=== PATIENT | male | born 1980 | race Caucasian/White ===

== ENCOUNTER → 2021-06-23 | Outpatient (CLI) | payer OTHER ==
[2021-06-23 08:17] LABS: BASOPHILS % (AUTO) 1 % (0-10); EOSINOPHILS # (AUTO) 0.1 10^3/uL (0.0-0.3); EOSINOPHILS % (AUTO) 2 % (0-10); HEMATOCRIT 48 % (40-54); HEMOGLOBIN 16.4 g/dL (13.3-17.7); LYMPHOCYTES # (AUTO) 2.5 10^3/uL (1.0-4.0); LYMPHOCYTES % (AUTO) 39 % (12-44); MEAN CORPUSCULAR HEMOGLOBIN 29 pg (25-34); MEAN CORPUSCULAR HGB CONC 35 g/dL (32-36); MEAN CORPUSCULAR VOLUME 83 fL (80-99); MONOCYTES # (AUTO) 0.5 10^3/uL (0.0-1.0); MONOCYTES % (AUTO) 7 % (0-12); NEUTROPHILS # (AUTO) 3.2 10^3/uL (1.8-7.8); NEUTROPHILS % (AUTO) 51 % (42-75); PLATELET COUNT 290 10^3/uL (130-400); WHITE BLOOD COUNT 6.3 10^3/uL (4.3-11.0)
[2021-06-23 08:37] LABS: ALBUMIN 4.2 GM/DL (3.2-4.5); BILIRUBIN,TOTAL 1.1 MG/DL (0.1-1.0); CALCIUM 9.4 MG/DL (8.5-10.1); CREATININE SERUM 1.06 MG/DL (0.60-1.30); TOTAL PROTEIN 7.4 GM/DL (6.4-8.2)
[2021-06-23 08:57] LABS: TSH (THYROID ANALYZER) 0.62 UIU/ML (0.35-4.94)
== END ==
LOC: LAB 07:42
PROVIDERS: ATTEND Nurse Practitioner Family
DX: Z01.89 Encounter for other specified special examinations (principal)
CPT/HCPCS: 36415; 80053; 80061; 84403; 84443; 85025

== ENCOUNTER → 2021-07-05 | Outpatient (CLI) | payer OTHER | LOC: LAB 07:41 | DX: E29.1 Testicular hypofunction (principal) | CPT/HCPCS: 36415; 83001; 83002; 84402; 84403 ==

== ENCOUNTER → 2022-02-02 | Outpatient (CLI) | payer OTHER ==
[2022-02-02 14:26] LABS: BASOPHILS # (AUTO) 0.1 10^3/uL (0.0-0.1); BASOPHILS % (AUTO) 1 % (0-10); EOSINOPHILS % (AUTO) 0 % (0-10); HEMATOCRIT 49 % (40-54); HEMOGLOBIN 16.7 g/dL (13.3-17.7); LYMPHOCYTES # (AUTO) 3.5 10^3/uL (1.0-4.0); LYMPHOCYTES % (AUTO) 33 % (12-44); MEAN CORPUSCULAR HEMOGLOBIN 28 pg (25-34); MEAN CORPUSCULAR HGB CONC 34 g/dL (32-36); MEAN CORPUSCULAR VOLUME 83 fL (80-99); MEAN PLATELET VOLUME 9.1 fL (9.0-12.2); MONOCYTES # (AUTO) 0.8 10^3/uL (0.0-1.0); MONOCYTES % (AUTO) 7 % (0-12); NEUTROPHILS # (AUTO) 6.1 10^3/uL (1.8-7.8); NEUTROPHILS % (AUTO) 58 % (42-75); PLATELET COUNT 338 10^3/uL (130-400); WHITE BLOOD COUNT 10.6 10^3/uL (4.3-11.0)
[2022-02-02 14:51] LABS: ALBUMIN 4.2 GM/DL (3.2-4.5); CALCIUM 9.3 MG/DL (8.5-10.1); CREATININE SERUM 1.05 MG/DL (0.60-1.30); POTASSIUM 3.9 MMOL/L (3.6-5.0); TOTAL PROTEIN 7.8 GM/DL (6.4-8.2)
== END ==
LOC: LAB 14:13
PROVIDERS: ATTEND Nurse Practitioner Family
DX: Z00.00 Encounter for general adult medical examination without abnormal findings (principal); Z79.890 Hormone replacement therapy
CPT/HCPCS: 36415; 80053; 84402; 84403; 85025

== ENCOUNTER 2022-02-09 05:30 | Outpatient (CLI) | payer OTHER ==
[~2022-02-09] VITALS: Ht 177.8 cm; Wt 109.0 kg
[2022-02-14] MEDS ORDERED: MONT10TA21 PO (10:16)
[2022-02-14] MEDS ORDERED: ALPR0.25 PO (10:16)
[2022-02-14] MEDS ORDERED: LEVO5TAB28 PO (10:16)
[2022-02-14] MEDS ORDERED: CETI10CA PO (10:16)
[2022-02-14] MEDS ORDERED: TEST100V9 IM (10:16)
[2022-02-14] MEDS ORDERED: OMEP40CA6 PO (10:16)
[2022-02-14] MEDS ORDERED: RT-ALBUINH INH (15:59)
== END 2022-02-14 16:01 | disposition home or self-care (01) ==
LOC: PREOP 05:30
PROVIDERS: ATTEND Otolaryngology Otolaryngology/Facial Plastic Surgery
DX: Z01.818 Encounter for other preprocedural examination (principal)

== ENCOUNTER 2022-02-16 08:33 | Day surgery (SDC) | payer OTHER ==
[2022-02-16] VITALS (11 sets, daily range): BP systolic 127–163; BP diastolic 74–104
[~2022-02-16] VITALS: Ht 177.8 cm; Wt 109.0 kg
[~2022-02-16 08:33] MED LIST: ALPR0.25 PO; CETI10CA PO; LEVO5TAB28 PO; MONT10TA21 PO; OMEP40CA6 PO; RT-ALBUINH INH; TEST100V9 IM
[2022-02-16] MEDS: LACTATED RINGERS 1,000 ML IV PRN ×2 (08:50→12:31)
[2022-02-16 09:20] LABS: BASOPHILS % (AUTO) 1 % (0-10); EOSINOPHILS # (AUTO) 0.1 10^3/uL (0.0-0.3); EOSINOPHILS % (AUTO) 2 % (0-10); HEMATOCRIT 47 % (40-54); LYMPHOCYTES # (AUTO) 2.4 10^3/uL (1.0-4.0); LYMPHOCYTES % (AUTO) 38 % (12-44); MEAN CORPUSCULAR HEMOGLOBIN 29 pg (25-34); MEAN CORPUSCULAR HGB CONC 34 g/dL (32-36); MEAN CORPUSCULAR VOLUME 83 fL (80-99); MEAN PLATELET VOLUME 9.6 fL (9.0-12.2); MONOCYTES # (AUTO) 0.4 10^3/uL (0.0-1.0); MONOCYTES % (AUTO) 7 % (0-12); NEUTROPHILS # (AUTO) 3.4 10^3/uL (1.8-7.8); NEUTROPHILS % (AUTO) 52 % (42-75); PLATELET COUNT 264 10^3/uL (130-400); WHITE BLOOD COUNT 6.4 10^3/uL (4.3-11.0)
--- NOTE | 2022-02-16 12:19 | Progress Note-Pre Operative ---
Pre-Operative Progress Note Date of Available H&P: Feb 16, 2022 Date H&P Reviewed: Feb 16, 2022 Time H&P Reviewed: 12:20 History & Physical: H&P Reviewed, Patient Examed, No changes noted Changes from last HP none Pre-Operative Diagnosis: Chornic Tonsil/Tonsil Stones AMY HAWLEY MD Feb 16, 2022 12:19
[2022-02-16] MEDS ORDERED: fentaNYL INJ 100 MCG/2 ML AMP ONE ×2 (12:21→12:31)
[2022-02-16] MEDS ORDERED: MIDAZOLAM 2 MG/2 ML (VERSED) VIAL ONE (12:22)
--- NOTE | 2022-02-16 12:22 | Progress Note-Post Operative ---
Post-Operative Progess Note Surgeon (s)/Rail Walker (s) Surgeon AMY HAWLEY MD Rail Walker n/a Pre-Operative Diagnosis Chornic Tonsil/Tonsil Stones Post-Operative Diagnosis same Post-Op Procedure Note Date of Procedure: Feb 16, 2022 Name of Procedure Performed: Tonsillectomy Description & Findings Description and Findings: n/a Anesthesia Type get Estimated Blood Loss minimal Packing none. Specimen(s) collected/removed tonsils AMY HAWLEY MD Feb 16, 2022 12:21
[2022-02-16] MEDS ORDERED: NS IV 1000 ML 1,000 ML IV SCH (12:30)
[2022-02-16] MEDS ORDERED: HYDROcodone/APAP 7.5MG-325 MG/15 ML (LORTAB) UDC PO PRN (12:30)
[2022-02-16] MEDS ORDERED: APAP 325 MG/10.15 ML LIQ (TYLENOL) UDC PO PRN (12:30)
[2022-02-16] MEDS ORDERED: proPOfol 200 MG/20 ML (DIPRIVAN) VIAL IV ONE (12:34)
[2022-02-16] MEDS ORDERED: LIDOCAINE PF 2% 5 ML (XYLOCAINE) VIAL ONE (12:34)
[2022-02-16] MEDS ORDERED: SEVOFLURANE (ULTANE) 15 ML INHAL SOLN ONE ×2 (12:34→12:35)
[2022-02-16] MEDS ORDERED: ROCURONIUM 10 MG/ML 5 ML SYRINGE IV ONE (12:35)
[2022-02-16] MEDS ORDERED: ONDANSETRON 4 MG/2 ML (SDV) Z0FRAN ONE (12:35)
[2022-02-16] MEDS ORDERED: GLYCOPYRROLATE 0.2 MG/ML (ROBINUL) 2 ML VIAL ONE ×2 (12:41→12:46)
[2022-02-16] MEDS ORDERED: NEOSTIGMINE (BLOXIVERZ ) 1 MG/1ML 10 ML VIAL ONE ×2 (12:41→12:47)
[2022-02-16] MEDS ORDERED: morphine INJ 10 MG/ML 1ML (SYR OR VIAL) IVP ONE (13:00)
[2022-02-16] MEDS ORDERED: MEPERIDINE (DEMEROL) INJ 50 MG/ML IVP ONE (13:00)
[2022-02-16] MEDS ORDERED: ONDANSETRON 4 MG/2 ML (SDV) Z0FRAN IVP PRN (13:00)
--- NOTE | 2022-02-16 13:01 | Anesthesia-General Post-Op ---
General Patient Condition Mental Status/LOC: Same as Preop Cardiovascular: Satisfactory Nausea/Vomiting: Absent Respiratory: Satisfactory Pain: Controlled Complications: Absent Post Op Complications Complications None Follow Up Care/Instructions Patient Instructions None needed. Anesthesia/Patient Condition Patient Condition Patient is doing well, no complaints, stable vital signs, no apparent adverse anesthesia problems. No complications reported per nursing. ERIN MAHONEY CRNA Feb 16, 2022 13:01
[2022-02-16] MEDS ORDERED: morphine INJ 10 MG/ML 1ML (SYR OR VIAL) ONE (13:08)
[2022-02-16] MEDS ORDERED: DEXAINTSOL PO (14:02)
[2022-02-16] MEDS ORDERED: HYDR15SO8 PO (14:02)
[2022-02-16] MEDS ORDERED: TETRACAINESUCKERS MT (14:02)
[2022-02-16] MEDS ORDERED: AZIT200S47 PO (14:02)
== END 2022-02-16 15:50 | disposition home or self-care (01) ==
LOC: SDC 08:33
PROVIDERS: ATTEND Otolaryngology Otolaryngology/Facial Plastic Surgery
DX: J35.01 Chronic tonsillitis (principal); A42.9 Actinomycosis, unspecified; K21.9 Gastro-esophageal reflux disease without esophagitis; Z28.310 Unvaccinated for COVID-19
CPT/HCPCS: 36415; 85025; 87081; 88304

== ENCOUNTER → 2022-08-21 | Outpatient (CLI) | payer OTHER ==
[~2022-08-21] MED LIST changes: +AZIT200S47 PO; +DEXAINTSOL PO; +HYDR15SO8 PO; +MONT-47 PO; -MONT10TA21 PO; +TETRACAINESUCKERS MT
[2022-08-21 08:22] LABS: ALBUMIN 4.1 GM/DL (3.2-4.5)
[2022-08-21 08:25] LABS: TOTAL PROTEIN 7.2 GM/DL (6.4-8.2)
[2022-08-21 08:27] LABS: BILIRUBIN,TOTAL 1.5 MG/DL (0.1-1.0)
[2022-08-21 08:29] LABS: CREATININE SERUM 0.94 MG/DL (0.60-1.30)
== END ==
LOC: LAB 08:01
PROVIDERS: ATTEND Nurse Practitioner Family
DX: Z00.01 Encounter for general adult medical examination with abnormal findings (principal); E34.9 Endocrine disorder, unspecified
CPT/HCPCS: 36415; 80053; 84403